=== PATIENT | male | born 1975 | race Two or more races ===

== ENCOUNTER 2016-12-26 17:09 | Emergency (ER) | payer SELFPAY ==
[~2016-12-26] VITALS: Ht 170.2 cm; Wt 77.1 kg
[~2016-12-26 17:09] MED LIST: IBUPROFEN600 MG PO; NKM
[2016-12-26 17:25] VITALS: BP 134/88
[2016-12-26] MEDS ORDERED: TdaP Vaccine 0.5ml Syr IM ONE (17:30)
[2016-12-26] MEDS ORDERED: Bacitracin Oint UD TOPIC ONE (18:01)
[2016-12-26] MEDS ORDERED: IBUPROFEN600 MG ORAL (18:20)
[2016-12-26] MEDS ORDERED: CEPHALEXIN500 MG ORAL (18:20)
[2016-12-26 18:30] VITALS: BP 134/88
--- NOTE | 2016-12-26 20:19 | Emergency Room Report ---
History of Present Illness General Chief Complaint: Puncture Wound Source: Patient (KRISTY CANCINO) Present Illness HPI The patient is a 41-year-old male presenting with possible foreign body of the left wrist today. The patient states that he was hammering a metal object when he fragment broke off and struck the left wrist. Pain is described as a 10 out of 10 dull ache and radiates to the mid forearm. Pain worse with touch. Last tetanus shot was more than 10 years ago. He denies any other injury and any other symptoms including numbness or tingling. (KRISTY CANCINO) Allergies: Coded Allergies: No Known Allergies (Unverified , 08/25/12) Patient History Past Medical History: see triage record Pertinent Family History: none Reviewed Nursing Documentation: PMH: Agreed, PSxH: Agreed (KRISTY CANCINO) Nursing Documentation-PMH Past Medical History: No Stated History (KRISTY CANCINO) Review of Systems All Other Systems: negative except mentioned in HPI (KRISTY CANCINO) Physical Exam Vital Signs Date Time Temp Pulse Resp B/P Pulse Ox O2 Delivery O2 Flow Rate FiO2 12/26/16 17:22 99.1 86 16 134/88 94 Room Air Sp02 EP Interpretation: reviewed, normal General Appearance: no apparent distress, alert, GCS 15, non-toxic Head: normocephalic, atraumatic Eyes: bilateral eye PERRL, bilateral eye normal inspection Musculoskeletal: normal range of motion, tender - TTP over the medial L wrist Neurologic: alert, oriented x3, responsive, motor strength/tone normal, sensory intact, speech normal Psychiatric: judgement/insight normal, memory normal, mood/affect normal, no suicidal/homicidal ideation Skin: no rash, warm/dry, well hydrated, laceration - <1cm puncture of the L wrist. FB not palpable (KRISTY CANCINO) Medical Decision Making PA Attestation Dr. Lee is my supervising physician. Patient management was discussed with my supervising physician (KRISTY CANCINO) Diagnostic Impression: Primary Impression: Foreign body (FB) in soft tissue ER Course The patient is a 41-year-old male presenting with possible foreign body of the left wrist Ddx considered include but not limited to sprain/strain, fracture, contusion, FB , infection, among others PE: NAD L wrist: Full AROM of wrist and fingers. . No active bleeding. No edema. There is a <1cm puncture wound of the medial wrist. FB non-palpable. SILT Tetanus shot given X-ray shows foreign body of the medial aspect of the wrist The wound is cleaned with normal saline and Betadine. Bacitracin applied with sterile dressing The patient is discharged home and will followup with PMD. He is informed he may need to see a hand surgeon if any complication occurs. He will be placed on prophylactic antibiotics ER precautions given (KRISTY CANCINO P.A.) ER Course Scribe documentation reviewed by me and is accurate. (Abad Lee M.D.) Other X-Ray Diagnostic Results Other X-Ray Diagnostic Results : X-Ray Ordered: L wrist Date: Dec 26, 2016 EP Interpretation: Yes Findings: no fractures, no dislocation, no soft tissue swelling, other - + FB Number of Views: 3 PA Scribe Text I am acting as scribe for my supervising physician. My supervising physician's interpretation of the L wrist xrays are there are no fractures, dislocations or soft tissue swelling. There is a FB of the medial wrist (KRISTY CANCINO P.A.) Last Vital Signs Date Time Temp Pulse Resp B/P Pulse Ox O2 Delivery O2 Flow Rate FiO2 12/26/16 18:30 99.2 86 16 134/88 94 Room Air Status: improved (TERZIAN,KRISTY P.A.) Disposition: HOME, SELF-CARE Condition: Improved Scripts Cephalexin* (KEFLEX*) 500 Mg Capsule 500 MG ORAL EVERY 6 HOURS, #28 CAP Prov: TERZIAN,KRISTY P.A. 12/26/16 Ibuprofen* (MOTRIN*) 600 Mg Tablet 600 MG ORAL Q8H Y for For Pain, #30 TAB 0 Refills Prov: TERZIAN,KRISTY P.A. 12/26/16 Patient Instructions: Puncture Wound Additional Instructions: I discussed my findings with the patient. All questions and concerns have been answered. Treatment and medication compliance have been addressed. I advised the patient that they need to follow up with PMD in 3-5 days. Return to ED if pain remains or worsens, numbness or tingling occurs, new rash is noticed, fever is noticed, or if needed for any reason. Patient verbalized understanding of discharge instructions. The patient was given a copy of his x-rays. He was informed that he will need to followup with primary doctor and possibly hand specialist KRISTY CANCINO Dec 26, 2016 20:19 Abad Lee M.D. Dec 27, 2016 02:28
--- NOTE | 2016-12-27 10:17 | Diagnostic Imaging Report ---
Clinical Indication:PAIN Technique: 3 views of the left wrist Comparison: None Findings: Metallic foreign body projects in the soft tissues anterior to the distal ulna. No definite bony destruction. No acute fractures. No dislocations. Joint spaces are preserved. Impression: Positive for foreign body This agrees with the preliminary interpretation provided by the emergency room physician
== END 2016-12-26 18:30 | disposition home or self-care (01) ==
LOC: EMR 17:51
DX: S61.542A Puncture wound with foreign body of left wrist, initial encounter (principal); X58.XXXA Exposure to other specified factors, initial encounter; Y92.89 Other specified places as the place of occurrence of the external cause; Z23 Encounter for immunization
CPT/HCPCS: 90471; 90715; 96372; 99284